=== PATIENT | male | born 2005 | race Caucasian/White ===

== ENCOUNTER 2025-06-14 21:49 | Emergency (ER) | payer MEDICAID ==
[~2025-06-14] VITALS: Ht 175.3 cm; Wt 72.6 kg
[2025-06-14] MEDS ORDERED: METHOCARBAMOL (500MG) 500 MG TABLET ONE (22:28)
[2025-06-14] MEDS ORDERED: IBUPROFEN 600 MG TABLET ONE (22:28)
[2025-06-14] MEDS: METHOCARBAMOL (500MG) 500 MG TABLET PO ONE (22:31)
[2025-06-14] MEDS: IBUPROFEN 600 MG TABLET PO ONE (22:31)
[2025-06-15] MEDS ORDERED: METH-647 PO (00:06)
[2025-06-15] MEDS ORDERED: IBUP-1490 PO (00:06)
[2025-06-15 00:23] VITALS: BP 140/90; TEMP 97.9; O2SAT 96
== END 2025-06-15 00:23 | disposition home or self-care (01) ==
LOC: ER 21:51
DX: S39.012A Strain of muscle, fascia and tendon of lower back, initial encounter (principal); S09.90XA Unspecified injury of head, initial encounter; Z60.2 Problems related to living alone; V89.2XXA Person injured in unspecified motor-vehicle accident, traffic, initial encounter; Y93.89 Activity, other specified; Y92.410 Unspecified street and highway as the place of occurrence of the external cause; Y99.9 Unspecified external cause status
CPT/HCPCS: 70450-TC; 72125-TC; 72128-TC